=== PATIENT | female | born 1970 | race Caucasian/White ===

== ENCOUNTER 2020-07-05 19:14 | Emergency (ER) | payer MEDICAID, OTHER ==
[~2020-07-05] VITALS: Ht 157.5 cm; Wt 76.1 kg
[~2020-07-05 19:14] MED LIST: BUTA1CAP30 PO; SUMA50TA4 PO; TOPI50TA35 PO
[2020-07-05 20:48] LABS: MICROSCOPIC NOT IND
[2020-07-05 20:50] LABS: BASOPHILS % (AUTO) 0 % (0-1); EOSINOPHILS % (AUTO) 1 % (1-7); LYMPHOCYTES % (AUTO) 39 % (22-44); MEAN CORPUSCULAR HEMOGLOBIN 31.2 pg (27.0-34.8); MEAN PLATELET VOLUME 6.6 fL (7.4-10.4); MONOCYTES % (AUTO) 8 % (2-9); NEUTROPHILS % (AUTO) 52 % (42-75); PLATELET COUNT 320 x10^3/uL (130-400); RED BLOOD COUNT 4.47 x10^6/uL (3.82-5.3); RED CELL DISTRIBUTION WIDTH 13.3 % (9.6-15.2)
[2020-07-05 20:52] LABS: MD NO
[2020-07-05 20:58] LABS: ANION GAP 4 mmol/L (5-15); CALCIUM 9.1 mg/dL (8.5-10.1); CHLORIDE 108 mmol/L (98-107); CREATININE 0.71 mg/dL (0.55-1.02)
--- NOTE | 2020-07-05 23:29 | NUR ---
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
[2020-07-05] MEDS ORDERED: ONDANSETRON 2MG/ML, 2ML ONE (23:40)
[2020-07-05] MEDS ORDERED: MORPHINE SULFATE 4 MG/ML, 1ML ONE (23:41)
--- NOTE | 2020-07-05 23:53 | NUR ---
IV STARTED, MEDICATED PER ORDER. VSS. CONT PULSE OX, B/P. SIDE RAILS, CALL HERNANDEZ. PT TO CT.
[2020-07-06] MEDS ORDERED: SODIUM CHLORIDE FLUSH 10ML SYR IVF ONE
[2020-07-06] MEDS ORDERED: MORPHINE SULFATE 4 MG/ML, 1ML IVPush PRN
[2020-07-06] MEDS ORDERED: ONDANSETRON 2MG/ML, 2ML IVPush ONE
[2020-07-06] MEDS ORDERED: OMNIPAQUE 350 MG/ML, 100ML BOTTLE ONE (00:13)
--- NOTE | 2020-07-06 00:13 | NUR ---
BACK FROM CT, REPORTS PAIN NEARLY GONE, N/V GONE. VSS. WILL CONTINUE TO MONITOR. AIDET PROVIDED.
[2020-07-06 00:34] VITALS: BP 133/75
[2020-07-06] MEDS ORDERED: MAALOX/HYOSCYAMINE/LIDOCAINE 45 ML BTL ONE (00:51)
--- NOTE | 2020-07-06 00:57 | NUR ---
pt resting in bed, vss, gi cocktail given, no complaints at this time
[2020-07-06] MEDS ORDERED: MAALOX/HYOSCYAMINE/LIDOCAINE 45 ML BTL PO ONE (01:00)
== END 2020-07-06 01:56 | disposition home or self-care (01) ==
LOC: ED 07-06 00:38
DX: K59.00 Constipation, unspecified (principal); R10.31 Right lower quadrant pain; R19.00 Intra-abdominal and pelvic swelling, mass and lump, unspecified site; R11.0 Nausea; Z98.51 Tubal ligation status
CPT/HCPCS: 36415; 74177; 80048; 81003; 84703; 85025; 96374; 96375; 99285; J2270; J2405; Q9967